=== PATIENT | male | born 1965 | race Caucasian/White ===

== ENCOUNTER 2023-01-11 10:56 | Day surgery (SDC) | payer BC ==
[~2023-01-11 10:56] MED LIST: Lactated Ringers 1,000 ML IV SCH; Sodium Chloride 0.9% 10 ML Syringe FLUSH PRN; Sodium Chloride 0.9% 10 ML Syringe FLUSH SCH
[2023-01-11] MEDS ORDERED: Ondansetron 4 MG/2 ML SDV IVPUSH PRN (11:26)
[2023-01-11] MEDS ORDERED: Midazolam 1 MG/ML 2 ML SDV ONE (11:44)
[2023-01-11] MEDS ORDERED: Lidocaine 1% 2 ML ONE (11:44)
[2023-01-11] MEDS ORDERED: Propofol 200 MG/20 ML SDV ONE ×2 (11:45)
== END 2023-01-11 13:30 | disposition home or self-care (01) ==
LOC: JD.SDS 10:56
PROVIDERS: ATTEND Specialist
DX: K57.30 Diverticulosis of large intestine without perforation or abscess without bleeding (principal); I10 Essential (primary) hypertension; E78.00 Pure hypercholesterolemia, unspecified; E11.65 Type 2 diabetes mellitus with hyperglycemia; Z79.84 Long term (current) use of oral hypoglycemic drugs; Z79.899 Other long term (current) drug therapy
CPT/HCPCS: 45378; J2250; J2704; J7120; 00811; J3490